=== PATIENT | female | born 1955 ===

== ENCOUNTER 2021-10-20 06:00 | Outpatient (RCR) | payer MEDICARE, SELFPAY | END 2021-10-31 23:59 | disposition home or self-care (01) | LOC: TPT 06:00 | PROVIDERS: Family Provider Nurse Practitioner Family; PCP Nurse Practitioner Family; Referring Provider Orthopaedic Surgery; Visit Provider Orthopaedic Surgery | DX: Z47.89 Encounter for other orthopedic aftercare (principal) | CPT/HCPCS: 97110; 97140; 97163 ==

== ENCOUNTER 2021-11-01 06:00 | Outpatient (RCR) | payer MEDICARE, SELFPAY | END 2021-12-01 23:59 | disposition home or self-care (01) | LOC: TPT 06:00 | PROVIDERS: Family Provider Nurse Practitioner Family; PCP Nurse Practitioner Family; Referring Provider Orthopaedic Surgery; Visit Provider Orthopaedic Surgery | DX: Z47.89 Encounter for other orthopedic aftercare (principal) | CPT/HCPCS: 97110; 97140 ==

== ENCOUNTER 2021-12-02 06:00 | Outpatient (RCR) | payer MEDICARE, SELFPAY | END 2021-12-31 23:59 | disposition home or self-care (01) | LOC: TPT 06:00 | PROVIDERS: PCP Nurse Practitioner Family; Referring Provider Orthopaedic Surgery; Visit Provider Orthopaedic Surgery | DX: Z47.89 Encounter for other orthopedic aftercare (principal) | CPT/HCPCS: 97110; 97140 ==

== ENCOUNTER 2022-01-01 06:00 | Outpatient (RCR) | payer MEDICARE, SELFPAY | END 2022-01-31 23:59 | disposition home or self-care (01) | LOC: TPT 06:00 | PROVIDERS: PCP Nurse Practitioner Family; Referring Provider Orthopaedic Surgery; Visit Provider Orthopaedic Surgery | DX: Z47.89 Encounter for other orthopedic aftercare (principal); S42.402D Unspecified fracture of lower end of left humerus, subsequent encounter for fracture with routine healing; X58.XXXD Exposure to other specified factors, subsequent encounter | CPT/HCPCS: 97110; 97140 ==

== ENCOUNTER 2022-02-01 06:00 | Outpatient (RCR) | payer MEDICARE, SELFPAY | END 2022-02-06 23:59 | disposition home or self-care (01) | LOC: TPT 06:00 | PROVIDERS: PCP Nurse Practitioner Family; Referring Provider Orthopaedic Surgery; Visit Provider Orthopaedic Surgery | DX: Z47.89 Encounter for other orthopedic aftercare (principal); S42.402D Unspecified fracture of lower end of left humerus, subsequent encounter for fracture with routine healing; X58.XXXD Exposure to other specified factors, subsequent encounter | CPT/HCPCS: 97110 ==

== ENCOUNTER 2023-04-20 17:39 | Emergency (ER) | payer MEDICARE, OTHER, SELFPAY ==
[2023-04-20 17:42] VITALS: BP 120/67; PULSE 118; RESP 15; TEMP 39.3; O2SAT 97; BMI 26.8
--- NOTE | 2023-04-20 18:00 | CTR_ITS ---
PROCEDURE INFORMATION: Exam: CT Abdomen And Pelvis Without Contrast Exam date and time: 04/20/2023 6:33 PM Age: 67 years old Clinical indication: Abdominal pain; Other: Bilat flank; Prior surgery; Surgery date: 6+ months; Surgery type: Renal TECHNIQUE: Imaging protocol: Computed tomography of the abdomen and pelvis without contrast. Radiation optimization: All CT scans at this facility use at least one of these dose optimization techniques: automated exposure control; mA and/or kV adjustment per patient size (includes targeted exams where dose is matched to clinical indication); or iterative reconstruction. REPORTING DATA: Count of CT and Cardiac NM exams in prior 12 months: This patient has received 0 known CTs and 0 known cardiac nuclear medicine studies in the 12 months prior to the current study. COMPARISON: No relevant prior studies available. RADIATION DOSE METRICS: Total DLP (mGy-cm): 403.48 FINDINGS: Liver: Several liver cysts are noted with the largest in the right lobe of the liver image 17 measuring 2.6 cm. Gallbladder and bile ducts: Normal. No calcified stones. No ductal dilation. Pancreas: The pancreas is normal. Spleen: The spleen is normal. Adrenal glands: There is multilobulated benign adenomatous enlargement of the adrenal glands. Kidneys and ureters: There is severe left hydronephrosis and hydroureter with a 7 mm calculus at the left ureteral vesical junction. There is no evidence of right hydronephrosis. There is abundant left perinephric fat stranding. There is left nephrolithiasis with multiple calculi measuring up to 1 cm in size. There is a 1.6 cm fluid density cyst lower pole right kidney. No follow-up is necessary. Stomach and bowel: There is no evidence of intestinal perforation or obstruction. There is no evidence of colitis/diverticulitis. Appendix: A normal appendix is identified. Intraperitoneal space: Unremarkable. No free air. No significant fluid collection. Vasculature: Unremarkable.No abdominal aortic aneurysm. Lymph nodes: Unremarkable.No enlarged lymph nodes. Urinary bladder: Unremarkable as visualized. Reproductive: Unremarkable as visualized. Bones/joints: Unremarkable. No acute fracture. Soft tissues: Unremarkable. CT/CT abdomen pelvis wo con [id number] IMPRESSION: There is severe left hydronephrosis and hydroureter with a 7 mm calculus at the left ureteral vesical junction. COMMENTS: Consistent with the [employer]'s Incidental Findings Committee white paper (J Am Brenda Radiol 2018): Any incidental renal lesion less than 1 cm or classified as too small to characterize, or any incidental cystic renal lesion characterized as simple-appearing, is likely benign. No follow-up imaging is recommended for these lesions per consensus recommendations based on imaging criteria.
[2023-04-20 18:12] VITALS: BP 115/68; PULSE 110; RESP 26; O2SAT 95
--- NOTE | 2023-04-20 18:14 | CTR_ITS ---
PROCEDURE INFORMATION: Exam: CT Head Without Contrast Exam date and time: 04/20/2023 6:31 PM Age: 67 years old Clinical indication: Altered mental status/memory loss and speech disturbance; Confusion or disorientation; Slurred speech; Additional info: Dysarthria TECHNIQUE: Imaging protocol: Computed tomography of the head without contrast. Radiation optimization: All CT scans at this facility use at least one of these dose optimization techniques: automated exposure control; mA and/or kV adjustment per patient size (includes targeted exams where dose is matched to clinical indication); or iterative reconstruction. REPORTING DATA: Count of CT and Cardiac NM exams in prior 12 months: This patient has received 0 known CTs and 0 known cardiac nuclear medicine studies in the 12 months prior to the current study. COMPARISON: No relevant prior studies available. RADIATION DOSE METRICS: Total DLP (mGy-cm): 1029.98 FINDINGS: Brain: No hemorrhage. No edema. Mild diffuse cerebral atrophy. 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 No mass effect. Cerebral ventricles: No ventriculomegaly. Paranasal sinuses: Visualized sinuses are unremarkable. No fluid levels. Mastoid air cells: Visualized mastoid air cells are well aerated. Bones/joints: Unremarkable. No acute fracture. Soft tissues: Unremarkable. CT/CT head wo con* [id number] IMPRESSION: 1. No acute intracranial abnormality. 2. 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
[2023-04-20 18:27] LABS: Basophils % 0.1 %; Hemoglobin 14.8 g/dL (11.5-15.3); Lymphocytes # 0.8 10^3/uL (0.8-4.8); Lymphocytes % 5.1 %; Mean Corpuscular HGB Conc 32.9 g/dL (30.0-36.0); Mean Corpuscular Hemoglobin 27.7 pg (28.0-34.0); Mean Corpuscular Volume 84.3 fl (81-99); Mean Platelet Volume 10.5 fL (7.4-10.4); Monocytes # 0.1 10^3/uL (0.2-0.9); Monocytes % 0.9 %; Neutrophils # 14.61 10^3/uL (1.8-7.7); Neutrophils % 93.6 %; Nucleated Red Blood Cells % 0 %; Platelet Count 202 10^3/cmm (130-400); Red Blood Count 5.34 10^6/uL (4.1-5.3); Red Cell Distribution Width 13.4 % (12.1-15.1); White Blood Count 15.6 10^3/uL (4.0-10.0)
[2023-04-20 18:37] LABS: Alanine Aminotransferase 15 U/L (0-33); Alkaline Phosphatase 106 U/L (35-105); Anion Gap 14.8 (5-19); Aspartate Amino Transferase 13 U/L (0-32); Blood Urea Nitrogen 14 mg/dL (8-23); Calcium 10.8 mg/dL (8.5-10.5); Carbon Dioxide 22 mmol/L (22-29); Chloride 101 mmol/L (98-107); Creatinine Clr Calc Pharmacy 57.0433; Globulin 2.7 g/dL (1.3-4.6); Glucose 127 mg/dL (65-115); Osmolality Calculated 280 mOsm/kg (285-295); Potassium 3.8 mmol/L (3.5-5.1); Sodium 134 mmol/L (136-145); Total Protein 6.7 g/dL (6.6-8.7)
[2023-04-20 18:43] LABS: Add Urine Microscopic? YES; Bilirubin Urine Neg (Negative); Blood Urine 3+ (Negative); Glucose Urine UA Norm (Normal); Ketones Urine 1+ (Negative); Leukocyte Esterase Urine 2+ (Negative); Nitrate Urine Positive (Negative); Protein Urine Trace (Negative); Specific Gravity, Urine 1.005 (1.005-1.030); Urine Appearance Hazy (CLEAR); Urine Color Yellow (Yellow); Urobilinogen Urine Norm (Negative); pH Urine 7 (5-7)
[2023-04-20 18:44] LABS: Add Urine Culture? Yes; Bacteria Urine 4+ /hpf; Squamous Epithelial Cell Urine 0-4 /hpf (0-5); WBC Urine >100 /hpf (0-5)
[2023-04-20] MEDS: ketorolac 30 mg/mL INJ 15 MG IVP (18:47)
[2023-04-20] MEDS: ondansetron 2 mg/ML SDV 2 mL 4 MG IVP (18:47)
[2023-04-20] MEDS: sodium chloride 0.9% 1,000 ML 999 ML IV (18:48)
[2023-04-20 19:03] VITALS: PULSE 91; RESP 18; O2SAT 98
--- NOTE | 2023-04-20 19:23 | W.ED.ABDPA2 ---
HPI - Abdominal Pain General: Chief Complaint: Abdominal Pain Stated Complaint: weakness Time Seen by Provider: 04/20/23 17:59 Source: patient History of Present Illness: 67-year-old female with a history of kidney stones several years ago. She presents with fever, left-sided abdominal and flank pain, and vomiting for 24 hours or so. Her says that she has some mild mental status changes as well. MD elicited complaint: abdominal pain Location: LLQ and L flank Severity: moderate Quality: cramping Radiation: L flank Exacerbating factors: other Relieving factors: nothing Associated Symptoms: Reports anorexia, fever(s), nausea, poor appetite and vomiting; Denies diarrhea, dysuria, hematuria and hematemesis Review of Systems Const: Reports: fever(s) Card: Denies: chest pain Resp: Denies: dyspnea GI: Reports: abdominal pain, nausea and vomiting; Denies: hematemesis or diarrhea : Reports: flank pain; Denies: dysuria or hematuria Physical Exam Const: GENERAL APPEARANCE: cooperative, ill appearing (Mildly) and frail appearing (Mildly) HENMT: COMMON NORMALS: normocephalic and Normal external nose present HEAD & SCALP: normocephalic FACE & SINUS: normal facial exam and face symmetric NOSE: Normal external nose present Eye: COMMON NORMALS: Equal, round and reactive pupils present and EOMs intact bilaterally PUPIL: Yes Equal, round and reactive pupils present Neck/C-Spine: GENERAL: Yes trachea midline Chest: CHEST: Yes Symmetrical chest wall rise Resp: COMMON NORMALS: normal respiratory effort, No use of accessory muscles and clear to auscultation bilaterally AUSCULTATION: clear to auscultation bilaterally Cardio: COMMON NORMALS: regular rate and regular rhythm RATE: regular rate RHYTHM: regular rhythm GI: COMMON NORMALS: Normal to inspection, nondistended, normoactive bowel sounds present : BLADDER/KIDNEY EXAM: Yes CVA tenderness on the left Back/Pelvis: GENERAL BACK: Yes CVA tenderness Course Vital Signs: Vital signs: Vital Signs Temperature 102.7 F H 04/20/23 17:42 Pulse Rate 91 04/20/23 19:03 Respiratory Rate 18 04/20/23 19:03 Blood Pressure 115/68 04/20/23 18:12 Pulse Oximetry 98 04/20/23 19:03 Oxygen Delivery Me thod Room Air 04/20/23 19:03 Oxygen Flow Rate 2 04/20/23 18:12 MDM - Abdominal Pain Medical Decision Making Patient with a fever, increased white blood cell count, some mild delirium, and a 7 mm UVJ stone on the left with pyelonephritis. She is given IV fluid, IV antibiotics after blood cultures. We do not have urology available at this facility. We have a call out to tertiary care facility with urology. She is full code Spoke with urology at [facility]. Dr. Mondragon. He is willing to take in transfer with hospitalist admission. Awaiting hospitalist. Lab Data 04/20/23 18:11 04/20/23 18:11 Labs/Radiology: Radiology Impressions Abdomen/Pelvis CT 04/20/23 18:00 IMPRESSION: There is severe left hydronephrosis and hydroureter with a 7 mm calculus at the left ureteral vesical junction. COMMENTS: Consistent with the [employer]'s Incidental Findings Committee white paper (J Am Brenda Radiol 2018): Any incidental renal lesion less than 1 cm or classified as too small to characterize, or any incidental cystic renal lesion characterized as simple-appearing, is likely benign. No follow-up imaging is recommended for these lesions per consensus recommendations based on imaging criteria. Head CT 04/20/23 18:14 IMPRESSION: 1. No acute intracranial abnormality. 2. 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 Laboratory Results WBC 15.6 10^3/uL (4.0-10.0) H 04/20/23 18:11 RBC 5.34 10^6/uL (4.1-5.3) H 04/20/23 18:11 Hgb 14.8 g/dL (11.5-15.3) 04/20/23 18:11 Hct 45.0 % (37.0-47.0) 04/20/23 18:11 MCV 84.3 fl (81-99) 04/20/23 18:11 MCH 27.7 pg (28.0-34.0) L 04/20/23 18:11 MCHC 32.9 g/dL (30.0-36.0) 04/20/23 18:11 RDW 13.4 % (12.1-15.1) 04/20/23 18:11 Plt Count 202 10^3/cmm (130-400) 04/20/23 18:11 MPV 10.5 fL (7.4-10.4) H 04/20/23 18:11 Neut % (Auto) 93.6 % 04/20/23 18:11 Lymph % (Auto) 5.1 % 04/20/23 18:11 [place] % (Auto) 0.9 % 04/20/23 18:11 Eos % (Auto) 0.0 % 04/20/23 18:11 Baso % (Auto) 0.1 % 04/20/23 18:11 Neut # (Auto) 14.61 10^3/uL (1.8-7.7) H 04/20/23 18:11 Lymph # (Auto) 0.8 10^3/uL (0.8-4.8) 04/20/23 18:11 [place] # (Auto) 0.1 10^3/uL (0.2-0.9) L 04/20/23 18:11 Eos # (Auto) 0.0 10^3/uL (0.0-0.8) 04/20/23 18:11 Baso # (Auto) 0.0 10^3/uL (0.0-0.1) 04/20/23 18:11 Nucleated RBC % (auto) 0 % 04/20/23 18:11 Nucleated RBCs # 0.0 /100WBC 04/20/23 18:11 Sodium 134 mmol/L (136-145) L 04/20/23 18:11 Potassium 3.8 mmol/L (3.5-5.1) 04/20/23 18:11 Chloride 101 mmol/L (98-107) 04/20/23 18:11 Carbon Dioxide 22 mmol/L (22-29) 04/20/23 18:11 Anion Gap 14.8 (5-19) 04/20/23 18:11 BUN 14 mg/dL (8-23) 04/20/23 18:11 Creatinine 0.7 mg/dL (0.5-0.9) 04/20/23 18:11 GFR Calculation 83.0 mL/min (90-130) L 04/20/23 18:11 Glucose 127 mg/dL (65-115) H 04/20/23 18:11 Calculated Osmolality 280 mOsm/kg (285-295) L 04/20/23 18:11 Lactic Acid 1.0 mmol/L (0.5-2.2) 04/20/23 18:11 Calcium 10.8 mg/dL (8.5-10.5) H 04/20/23 18:11 Total Bilirubin 1.0 mg/dL (0.15-1.2) 04/20/23 18:11 AST 13 U/L (0-32) 04/20/23 18:11 ALT 15 U/L (0-33) 04/20/23 18:11 Alkaline Phosphatase 106 U/L (35-105) H 04/20/23 18:11 Total Protein 6.7 g/dL (6.6-8.7) 04/20/23 18:11 Albumin 4.0 g/dL (3.5-5.2) 04/20/23 18:11 Globulin 2.7 g/dL (1.3-4.6) 04/20/23 18:11 Urine Color Yellow (Yellow) 04/20/23 18:21 Urine Appearance Hazy (CLEAR) A 04/20/23 18:21 Urine pH 7 (5-7) 04/20/23 18:21 Ur Specific [place] 1.005 (1.005-1.030) 04/20/23 18:21 Urine Protein Trace (Negative) 04/20/23 18: Urine Glucose (UA) Norm (Normal) 04/20/23 18:21 Urine Ketones 1+ (Negative) H 04/20/23 18:21 Urine Blood 3+ (Negative) H 04/20/23 18:21 Urine Nitrate Positive (Negative) H 04/20/23 18:21 Urine Bilirubin Neg (Negative) 04/20/23 18:21 Urine Urobilinogen Norm mg/dL (Negative) 04/20/23 18:21 Ur Leukocyte Esterase 2+ (Negative) H 04/20/23 18:21 Urine RBC 5-10 /hpf (0-2) H 04/20/23 18:21 Urine WBC >100 /hpf (0-5) H 04/20/23 18:21 Ur Squamous Epith Cells 0-4 /hpf (0-5) H 04/20/23 18:21 Amorphous Sediment Not Reportable 04/20/23 18:21 Urine Bacteria 4+ /hpf (NONE) H 04/20/23 18:21 Discharge Plan Discharge Patient Disposition: Xfer Short-Term Hosp Clinical Impression: Acute pyelonephritis, Ureterolithiasis Condition: Fair Referrals: Maria A Chery FNP [Primary Care Provider] - Coding Level of Care Code ED Braille Proofreader for Dahiana Holley
[2023-04-20] MEDS: piperacillin-tazobactam 4.5 GM in sodium chloride 0.9% (plus) 50 ML IV (21:35)
== END 2023-04-20 21:40 | disposition short-term general hospital (02) ==
PROVIDERS: Family Medicine; Emergency Provider Emergency Medicine; PCP Nurse Practitioner Family
DX: N10 Acute pyelonephritis (principal); N20.1 Calculus of ureter
CPT/HCPCS: 36415; 70450; 74176; 80053; 81001; 83605; 85025; 87040; 87077; 87086; 87186; 96374; 96375; 99285; J1885; J2405; J2543; J7030

== ENCOUNTER → 2023-04-27 09:26 | Outpatient (BNVA) | payer MEDICARE, OTHER, SELFPAY | PROVIDERS: PCP Nurse Practitioner Family; Visit Provider Nurse Practitioner Family | DX: R39.9 Unspecified symptoms and signs involving the genitourinary system (principal) | CPT/HCPCS: 81003 ==

== ENCOUNTER → 2023-05-09 10:16 | Outpatient (BNVA) | payer MEDICARE, OTHER, SELFPAY | PROVIDERS: PCP Nurse Practitioner Family; Visit Provider Nurse Practitioner Family | DX: R39.9 Unspecified symptoms and signs involving the genitourinary system (principal); N20.0 Calculus of kidney; N39.0 Urinary tract infection, site not specified | CPT/HCPCS: 81003; 87077; 87086; 87184 ==

== ENCOUNTER → 2023-05-21 10:17 | Outpatient (BNVA) | payer MEDICARE, OTHER, SELFPAY | PROVIDERS: PCP Nurse Practitioner Family; Visit Provider Nurse Practitioner Family | DX: N20.0 Calculus of kidney (principal) | CPT/HCPCS: 81003 ==

== ENCOUNTER → 2023-05-22 16:54 | Outpatient (BNVA) | payer MEDICARE, OTHER, SELFPAY | PROVIDERS: PCP Nurse Practitioner Family; Visit Provider Nurse Practitioner Family | DX: N39.0 Urinary tract infection, site not specified (principal) | CPT/HCPCS: 81003; 87077; 87086; 87184 ==

== ENCOUNTER → 2024-06-18 09:15 | Outpatient (BNVA) | payer MEDICARE, OTHER, SELFPAY | PROVIDERS: PCP Nurse Practitioner Family; Visit Provider Nurse Practitioner Family | DX: N39.0 Urinary tract infection, site not specified (principal); N20.0 Calculus of kidney | CPT/HCPCS: 81000; 87086 ==

== ENCOUNTER → 2025-07-15 11:33 | Outpatient (BNVA) | payer MEDICARE, OTHER, SELFPAY | PROVIDERS: PCP Nurse Practitioner Family; Visit Provider Nurse Practitioner Family | DX: N39.0 Urinary tract infection, site not specified (principal); R39.89 Other symptoms and signs involving the genitourinary system | CPT/HCPCS: 80053; 81000; 85025; 87086 ==

== ENCOUNTER → 2025-08-06 10:06 | Outpatient (BNVA) | payer MEDICARE, OTHER, SELFPAY | PROVIDERS: PCP Nurse Practitioner Family; Visit Provider Nurse Practitioner Family | DX: R89.9 Unspecified abnormal finding in specimens from other organs, systems and tissues (principal) | CPT/HCPCS: 82310; 83970 ==

== ENCOUNTER → 2025-08-31 13:07 | Outpatient (BNVA) | payer MEDICARE, OTHER, SELFPAY | PROVIDERS: PCP Nurse Practitioner Family; Visit Provider Nurse Practitioner Family | DX: R39.89 Other symptoms and signs involving the genitourinary system (principal) | CPT/HCPCS: 81000; 87086 ==